=== PATIENT | male | born 2000 | race African-American/Black ===

== ENCOUNTER 2021-09-19 17:46 | Emergency (ER) | payer OTHER ==
[~2021-09-19] VITALS: Ht 172.7 cm; Wt 79.5 kg
[2021-09-19 18:06] VITALS: TEMP 98.6
[2021-09-19 19:50] VITALS: BP 121/76; PULSE 93
== END 2021-09-19 19:50 | disposition home or self-care (01) ==
LOC: COL.ER 17:46
DX: J10.1 Influenza due to other identified influenza virus with other respiratory manifestations (principal); F17.290 Nicotine dependence, other tobacco product, uncomplicated; Z20.822 Contact with and (suspected) exposure to COVID-19
CPT/HCPCS: J1885

== ENCOUNTER 2022-08-08 22:40 | Emergency (ER) | payer SELFPAY ==
[~2022-08-08] VITALS: Ht 172.7 cm; Wt 97.6 kg
[2022-08-08 22:49] VITALS: BP 133/84; PULSE 104; TEMP 98.7
== END 2022-08-08 23:42 | disposition home or self-care (01) ==
LOC: COL.ER 22:40
DX: J31.0 Chronic rhinitis (principal); F17.210 Nicotine dependence, cigarettes, uncomplicated